=== PATIENT | female | born 1970 | race African-American/Black ===

== ENCOUNTER 2017-07-13 09:25 | Emergency (ER) | payer OTHER ==
[2017-07-13 09:35] VITALS: BP 112/74
[2017-07-13] MEDS ORDERED: ZOFRAN ODT PO ONE (13:54)
[2017-07-13] MEDS ORDERED: TYLENOL PO ONE (13:58)
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
--- NOTE | 2017-07-13 14:14 | Cat Scan Report ---
CT HEAD WITHOUT CONTRAST: HISTORY: Headache. TECHNIQUE: Sequential 2.5mm CT images. COMPARISON: none. FINDINGS: Cerebral Parenchyma: Within normal limits. Cerebellum: Within normal limits. Brainstem: Within normal limits. Ventricles: Normal. Sella: Normal. Extra-axial spaces: Normal. Basal Cisterns: Normal. Intracranial Hemorrhage: None. Midline Shift: None. Calvarium: Normal. Sinuses: Normal. Mastoid Air Cells: Normal. Visualized Orbits: Normal. IMPRESSION: Cranial CT scan within normal limits.
[2017-07-13 14:29] LABS: HCG Qualitative,Urine Negative (Negative)
== END 2017-07-13 15:11 | disposition home or self-care (01) ==
LOC: ED 09:25
DX: R51 Headache (principal); V49.49XA Driver injured in collision with other motor vehicles in traffic accident, initial encounter; Y93.89 Activity, other specified; Y92.89 Other specified places as the place of occurrence of the external cause; Y99.8 Other external cause status
CPT/HCPCS: 70450; 81025; Q0162